=== PATIENT | female | born 1940 | race Caucasian/White ===

== ENCOUNTER 2016-11-21 11:14 | Emergency (ER) | payer MEDICARE, OTHER ==
[2016-11-21 11:46] LABS: Hematocrit 37.8 % (37.0-47.0); Hemoglobin 11.9 gm/dL (12.5-16.0); Mean Cell Volume 94.7 fl (78-100); Mean Corpuscular Hemoglobin 29.8 pg (27-31); Mean Corpuscular Hgb Conc 31.5 g/dl (32-36); Mean Platelet Volume 8.5 fl (6.0-9.5); Neutrophil # 9.3 K/mm3 (1.3-6.0); Neutrophil % 81.7 % (42-75.0); Platelet Count 229 K/mm3 (150-450); Red Blood Count 3.99 M/mm3 (4.2-5.4); Red Cell Distribution Width 15.4 % (11.5-14.0); White Blood Count 11.4 K/mm3 (4.0-10.5)
[2016-11-21 11:59] LABS: Albumin * 3.3 gm/dl (3.4-5.0); Anion Gap 10.4 mmol/L (6.8-13.8); BUN/Creatinine Ratio 22.6 (9.0-21.6); Bilirubin, Total 0.5 mg/dL (0.0-1.1); Ca. Corrected For Albumin 8.9 mg/dL (8.4-10.2); Calcium * 8.7 mg/dL (7.9-10.9); Carbon Dioxide 29.1 mmol/L (24-32.6); Potassium 4.5 mmol/L (3.4-4.6)
[2016-11-21 12:19] LABS: Urine Bilirubin Negative (NEGATIVE); Urine Blood 25 /ul (NEGATIVE); Urine Ketone Negative (NEGATIVE); Urine Nitrite Negative (NEGATIVE); Urine Protein 15 mg/dL (NEGATIVE); Urine Specific Gravity >=1.030 SP.GR. (1.005-1.010); Urine Urobilinogen Normal (NORMAL)
[2016-11-21 12:50] LABS: Urine Appearance Clear; Urine Bacteria TRACE; Urine Color Yellow; Urine Hyaline Cast 0-5 /LPF; Urine RBC TRACE /hpf (0-5); Urine WBC None Seen /hpf (0-5)
[2016-11-21 13:38] VITALS: BP 129/52
--- NOTE | 2016-11-21 15:55 | ERNOTE ---
Medical Problem HPI - Narrative Date of Service: 11/21/16 - General Chief Complaint: General Assessment Time Seen by Provider: 11/21/16 11:20 - Immun/Allergies/Home Medications Immunizations: IMMUNIZATION HX Immunizations Up to Date Yes History of Influenza Vaccine Yes Hx Pneumococcal Vaccination Yes Allergies/Adverse Reactions: Allergies Iodinated Contrast Media - IV Dye [IV Dye, Iodine Containing Contrast ] Adverse Reaction (Intermediate, Verified 11/20/15 06:40) "REAL SICK" aspirin Adverse Reaction (Mild, Verified 11/20/15 06:40) NOSE BLEEDING morphine Adverse Reaction (Mild, Verified 11/20/15 06:40) RASH naproxen sodium [From Aleve] Adverse Reaction (Mild, Verified 11/20/15 06:40) NOSE BLEEDING oxycodone Adverse Reaction (Mild, Verified 11/20/15 06:40) withdrawal s/s Sulfa (Sulfonamide Antibiotics) [Sulfa(Sulfonamide Antibiotics)] Adverse Reaction (Mild, Verified 11/20/15 06:40) GI UPSET Home Medications: HOME MEDICATIONS Alprazolam [Xanax Xr] 0.25 mg PO QAM 02/08/13 [Last Taken 02/06/15 20:30] Clopidogrel Bisulfate [Plavix] 75 mg PO DAILY 02/08/13 [Last Taken 02/06/15 10: 00] Docusate Sodium [Colace] 100 mg PO BID 02/08/13 [Last Taken 02/06/15 20:30] Levothyroxine Sodium [Synthroid] 50 mcg PO DAILY 02/08/13 [Last Taken 02/06/15 10:00] Meclizine HCl [Antivert] 25 mg PO PRN PRN 02/08/13 [Last Taken Unknown] Omeprazole [Prilosec] 20 mg PO DAILY 02/08/13 [Last Taken 02/06/15 10:00] Simvastatin [Zocor] 40 mg PO HS 02/08/13 [Last Taken 02/06/15 20:30] Gabapentin 900 mg PO TID 03/24/14 [Last Taken 02/06/15 20:30] ALPRAZolam [Xanax] 0.5 mg PO HS 11/07/15 [Last Taken Unknown] Baclofen 10 mg PO BID 11/07/15 [Last Taken Unknown] Cyanocobalamin (Vitamin B-12) [B-12] 1,000 mcg PO DAILY 11/07/15 [Last Taken Unknown] Fesoterodine Fumarate [Toviaz] 8 mg PO DAILY 11/07/15 [Last Taken Unknown] fentaNYL [Duragesic] 75 mcg TD Q72H PRN 11/07/15 [Last Taken Unknown] Mirabegron [Myrbetriq] 25 mg PO DAILY 11/13/15 [Last Taken Unknown] [place]-3 Fatty Acids/Fish Oil [Fish Oil 1,000 mg Capsule] 2 each PO BID 11/13/15 [Last Taken Unknown] Triamcinolone Acetonide 1 applic TP BID 11/13/15 [Last Taken Unknown] diphenhydrAMINE HCL [Benadryl] 25 mg PO Q6H PRN 11/20/15 [Last Taken Unknown] HYDROcodone/ACETAMINOPHEN [[place] 5-325] 2 each PO Q4H PRN #90 tablet 11/23/15 [ Last Taken Unknown] Potassium Chloride [Klor-Con 10] 40 meq PO DAILY #60 tablet.er 11/23/15 [Last Taken Unknown] Nystatin 5 ml PO QID #300 ml 06/28/16 [Last Taken Unknown] - Patient's Past Medical History Patient History - Medical: Anxiety, GERD, Hypothyroidism, Obesity, Osteoarthritis, UTI'S Patient History - Cardiac/Respiratory: Hyperlipidemia Patient History - Cancer: No Hx of Cancer Patient History - Surgical Procedures: Cholecystectomy, Colonoscopy, Cardiac stent, EGD, Pacemaker, Total Hip Replacement, T & A Patient History - Other: None LMP (females 10-50): Menopausal - Family History Father Family History - Medical: Family History - Cardiac/Respiratory: Cardiac Arrest Mother Family History - Medical: Family History - Cardiac/Respiratory: History Unknown Sister Family History - Medical: Family History - Cardiac/Respiratory: CVA/Stroke, Hypertension Brother Family History - Medical: - Social History Living Situations: home Abuse History: No History of abuse Psych History: Hx of Anxiety Smoking Status: Former smoker Alcohol Use: none Drug Use: none - Immunizations Immunizations Up to Date: Yes Hx Pneumococcal Vaccination: Yes History of Influenza Vaccine: Yes ED Progress - Vital Signs Vital Signs: Vital Signs 11/21/16 11/21/16 11:16 13:35 Temperature 36.4 C L Pulse Rate 71 68 Respiratory 16 16 Rate Blood Pressure 130/86 129/52 O2 Sat by Pulse 95 93 Oximetry - Progress/Reassessment Chief Complaint: General Assessment Departure - Departure Clinical Impression: Weakness Disposition: Home self-care Condition: Good Instructions: Weakness, [id number] Additional Instructions: please ambulate with assistance Referrals: Haresh Deshpande MD [Primary Care Provider] -
== END 2016-11-21 18:38 | disposition home or self-care (01) ==
LOC: ER 11:14
DX: R53.1 Weakness (principal); Z87.440 Personal history of urinary (tract) infections; Z95.5 Presence of coronary angioplasty implant and graft; Z95.0 Presence of cardiac pacemaker; Z96.649 Presence of unspecified artificial hip joint

== ENCOUNTER 2017-07-20 16:05 | Emergency (ER) | payer MEDICARE, OTHER ==
--- NOTE | 2017-07-20 16:19 | ERNOTE ---
Medical Problem HPI - General Time Seen by Provider: 07/20/17 16:08 Source: patient Exam Limitations: no limitations - Immun/Allergies/Home Medications Immunizations: IMMUNIZATION HX Immunizations Up to Date Yes History of Influenza Vaccine Yes Hx Pneumococcal Vaccination Yes Allergies/Adverse Reactions: Allergies Iodinated Contrast- Oral and IV Dye [IV Dye, Iodine Containing Contrast ] Adverse Reaction (Intermediate, Verified 07/20/17 16:24) "REAL SICK" aspirin Adverse Reaction (Mild, Verified 07/20/17 16:24) NOSE BLEEDING morphine Adverse Reaction (Mild, Verified 07/20/17 16:24) RASH oxycodone Adverse Reaction (Mild, Verified 07/20/17 16:24) withdrawal s/s Sulfa (Sulfonamide Antibiotics) [Sulfa(Sulfonamide Antibiotics)] Adverse Reaction (Mild, Verified 07/20/17 16:24) GI UPSET Home Medications: HOME MEDICATIONS Alprazolam [Xanax Xr] 0.25 mg PO QA 02/08/13 [Last Taken 02/06/15 20:30] Clopidogrel Bisulfate [Plavix] 75 mg PO DAILY 02/08/13 [Last Taken 02/06/15 10: 00] Levothyroxine Sodium [Synthroid] 50 mcg PO DAILY 02/08/13 [Last Taken 02/06/15 10:00] Omeprazole [Prilosec] 20 mg PO DAILY 02/08/13 [Last Taken 02/06/15 10:00] Simvastatin [Zocor] 40 mg PO HS 02/08/13 [Last Taken 02/06/15 20:30] Gabapentin 300 mg PO BID 03/24/14 [Last Taken 02/06/15 20:30] ALPRAZolam [Xanax] 0.5 mg PO HS 11/07/15 [Last Taken Unknown] Baclofen 10 mg PO BID 11/07/15 [Last Taken Unknown] Fesoterodine Fumarate [Toviaz] 4 mg PO HS 11/07/15 [Last Taken Unknown] [place]-3 Fatty Acids/Fish Oil [Fish Oil 1,000 mg Capsule] 2 each PO BID 11/13/15 [Last Taken Unknown] Cephalexin 250 mg PO DAILY 07/20/17 [Last Taken Unknown] Potassium Chloride [Klor-Con 10] 10 meq PO BID 07/20/17 [Last Taken Unknown] Sertraline HCl [Zoloft] 40 mg PO ONCE 07/20/17 [Last Taken Unknown] - History of Present History Narrative: Patient is brought in via ambulance from her residence for chest pressure that she has had intermittently since last night. Patient took nitroglycerin last night and it did not help her chest pressure therefore she went to sleep. Today she woke up and has had intermittent chest pressure and called EMS. In route EMS administered 4 aspirins and a nitroglycerin. The nitroglycerin administered today sublingually to the patient made her pain disappear. HEENT appeared at rest it was in the chest area with no radiation patient became jittery and in fact feels slightly jittery now. Review of Systems - Review of Systems Constitutional: Present: no symptoms reported EYE: Present: no symptoms reported ENT: Present: no symptoms reported Respiratory: Present: no symptoms reported Cardiology: Present: See HPI Gastrointestinal/Abdominal: Present: no symptoms reported Genitourinary: Present: no symptoms reported Musculoskeletal: Present: no symptoms reported Skin: Present: no symptoms reported - Patient's Past Medical History Patient History - Medical: Anxiety, GERD, Hypothyroidism, Obesity, Osteoarthritis, UTI'S Patient History - Cardiac/Respiratory: Hyperlipidemia Patient History - Cancer: No Hx of Cancer Patient History - Surgical Procedures: Cholecystectomy, Colonoscopy, Cardiac stent, EGD, Pacemaker, Total Hip Replacement, T & A Patient History - Other: None - Family History Father Family History - Medical: Family History - Cardiac/Respiratory: Cardiac Arrest Mother Family History - Medical: Family History - Cardiac/Respiratory: History Unknown Sister Family History - Medical: Family History - Cardiac/Respiratory: CVA/Stroke, Hypertension Brother Family History - Medical: - Social History Living Situations: home Abuse History: No History of abuse Psych History: Hx of Anxiety Alcohol Use: none Drug Use: none - Immunizations Immunizations Up to Date: Yes Hx Pneumococcal Vaccination: Yes History of Influenza Vaccine: Yes Physical Exam - Physical Exam General Appearance: Present: wd/wn, alert, no apparent distress Head Exam: Present: normal inspection, no evidence of injury Respiratory: Present: no respiratory distress, normal breath sounds, no accessory muscle use, chest nontender, lungs clear Cardiovascular/Chest: Present: regular rate, rhythm, no murmur, normal peripheral pulses Extremity Exam: Present: normal inspection, normal range of motion ED Progress - Results and Orders Patient's Lab Results:: I have reviewed the patient's lab results. - Vital Signs Patient's Vital Signs:: I have reviewed the patient's vital signs. - EKG EKG: NSR - X-Ray X-Ray #1 X-Ray: chest Plan - Plan Plan: This patient who no longer has any chest pressure states that the chest pressure which was intermittent started last night. Had her symptoms been secondary to a cardiac etiology her enzymes would already have been elevated which they are not. Her chest x-ray is normal she no longer has chest pressure or EKG is no different than before in my opinion this patient is stable and appropriate to be discharged home with chest wall discomfort Departure Clinical Impression: Chest wall pain - Departure Disposition: Home self-care Condition: Good Instructions: Panic Attacks, [id number]
[2017-07-20 16:26] LABS: Hematocrit 39.1 % (37.0-47.0); Hemoglobin 12.5 gm/dL (12.5-16.0); Mean Cell Volume 93.8 fl (78-100); Mean Platelet Volume 8.5 fl (6.0-9.5); Neutrophil # 5.3 K/mm3 (1.3-6.0); Neutrophil % 67.5 % (42-75.0); Platelet Count 197 K/mm3 (150-450); Red Blood Count 4.17 M/mm3 (4.2-5.4); Red Cell Distribution Width 15.3 % (11.5-14.0); White Blood Count 7.9 K/mm3 (4.0-10.5)
[2017-07-20 16:44] LABS: Troponin I Less than 0.017 ng/ml (0.00-0.10)
[2017-07-20 16:49] LABS: ALT 26 U/L (19-67); AST 26 U/L (0-48); Albumin * 3.5 gm/dl (3.4-5.0); Alkaline Phosphatase * 97 U/L (50-170); Anion Gap 10.6 mmol/L (6.8-13.8); BUN/Creatinine Ratio 21.1 (9.0-21.6); Bilirubin, Total 0.5 mg/dL (0.0-1.1); Blood Urea Nitrogen 20 mg/dL (3-23); CKMB 4.1 ng/mL (0.0-9.0); Ca. Corrected For Albumin 8.6 mg/dL (8.4-10.2); Calcium * 8.5 mg/dL (7.9-10.9); Chloride 103 mmol/L (97-106); Glucose * 106 mg/dL (70-110); Potassium 4.6 mmol/L (3.4-4.6); Sodium 138 mmol/L (132-142)
[2017-07-20 17:58] VITALS: BP 137/77
== END 2017-07-20 17:55 | disposition home or self-care (01) ==
LOC: ER 16:05
DX: R07.89 Other chest pain (principal); K21.9 Gastro-esophageal reflux disease without esophagitis; E03.9 Hypothyroidism, unspecified; M19.90 Unspecified osteoarthritis, unspecified site; E78.5 Hyperlipidemia, unspecified; F41.9 Anxiety disorder, unspecified